=== PATIENT | female | born 1945 | race Caucasian/White ===

== ENCOUNTER 2017-01-20 09:54 | Emergency (ER) | payer SELFPAY ==
[~2017-01-20] VITALS: Ht 142.2 cm; Wt 87.5 kg
[2017-01-20 10:04] VITALS: Ht 142.2 cm; Wt 87.5 kg
[2017-01-20] MEDS ORDERED: ACETAMINOPHEN 500 MG TAB PO STA (11:34)
[2017-01-20] MEDS ORDERED: traMADol 50 MG TAB PO ONE (12:00)
[2017-01-20 12:20] LABS: ADD UMIC YES; URINE BILIRUBIN (Dip) NEGATIVE (NEGATIVE); URINE BLOOD (Dip) 1+ (NEGATIVE); URINE COLOR LT. YELLOW (YELLOW); URINE GLUCOSE (Dip) NEGATIVE (NEGATIVE); URINE KETONES (Dip) NEGATIVE (NEGATIVE); URINE LEUKOCYTE ESTERASE (Dip) 1+ (NEGATIVE); URINE NITRITE (Dip) NEGATIVE (NEGATIVE); URINE TOTAL PROTEIN (Dip) NEGATIVE (NEGATIVE); URINE UROBILINOGEN (Dip) 0.2 E.U./dL (0.1-1.0)
[2017-01-20 12:47] LABS: SQUAMOUS EPITHELIAL CELL,UR FEW
[2017-01-20] MEDS ORDERED: NITR-58 PO (12:55)
[2017-01-20] MEDS ORDERED: TRAM-40 PO (12:55)
[2017-01-20] MEDS ORDERED: LOSA100T7 PO (12:55)
[2017-01-20] MEDS ORDERED: HYD25 PO (12:55)
[2017-01-20] MEDS ORDERED: ACET500C5 PO (12:55)
--- NOTE | 2017-01-20 13:00 | ERD ---
ER Documentation Chief Complaint Date/Time DATE: 01/20/17 TIME: 12:58 Chief Complaint BACK PAIN FOR SEVERAL DAYS GOT WORSE HPI This 71-year-old female complains of history of chronic upper back pain. Patient [place] 2 [place] ago. She is requesting a refill on her blood pressure medicines which are hydrochlorothiazide and losartan. She is requesting medication for her chronic back pain. Patient gives a history of kidney stones. She brings with her a CAT scan which upon my review shows a staghorn calculus on the left. There is no history of fevers, vomiting, abdominal pain. There is no history of urinary complaints per ROS All systems reviewed and are negative except as per history of present illness. Medications Home Meds Active Scripts Nitrofurantoin Monohyd Macrocr* (Macrobid*) 100 Mg Capsr, 100 MG PO BID for 14 Days, CAP Prov:BRYSON GRANGER MD 01/20/17 Hydrochlorothiazide* (Hydrochlorothiazide*) 25 Mg Tab, 25 MG PO DAILY, #30 TAB Prov:BRYSON GRANGER MD 01/20/17 Losartan Potassium* (Losartan Potassium*) 100 Mg Tablet, 100 MG PO DAILY, #30 TAB Prov:BRYSON GRANGER MD 01/20/17 Tramadol Hcl* (Ultram*) 50 Mg Tablet, 50 MG PO Q6H Y for PAIN, #20 TAB Prov:BRYSON GRANGER MD 01/20/17 Acetaminophen* (Tylophen*) 500 Mg Capsule, 1 CAP PO Q6H Y for PAIN AND OR ELEVATED TEMP, #30 CAP Prov:BRYSON GRANGER MD 01/20/17 PMhx/Soc Medical and Surgical Hx: pt denies Medical Hx, pt denies Surgical Hx Hx Alcohol Use: No Hx Substance Use: No Smoking Status: Never smoker Physical Exam Vitals Vital Signs Date Time Temp Pulse Resp B/P Pulse Ox O2 Delivery O2 Flow Rate FiO2 01/20/17 10:04 98.8 78 17 184/87 98 Physical Exam Const: [] Alert, fot-egg-eewlwiuhr per Head: Atraumatic Eyes: Normal Conjunctiva ENT: Normal External Ears, Nose and Mouth. Neck: Full range of motion..~ No meningismus. Resp: Clear to auscultation bilaterally Cardio: Regular rate and rhythm, no murmurs Abd: Soft, non tender, non distended. Normal bowel sounds Skin: No petechiae or rashes Back: No midline. Mild bilateral flank tenderness. Ext: No cyanosis, or edema Neur: Awake and alert Psych: Normal Mood and Affect Results 24 hrs Laboratory Tests Test 01/20/17 11:45 Urine Color LT. YELLOW Urine Clarity CLEAR Urine pH 7.5 Urine Specific [place] 1.010 Urine Ketones NEGATIVE Urine Nitrite NEGATIVE Urine Bilirubin NEGATIVE Urine Urobilinogen 0.2 E.U./dL Urine Leukocyte Esterase 1+ Urine Microscopic RBC 2-5/HPF Urine Microscopic WBC 0-2/HPF Urine Squamous Epithelial Cells FEW Urine Hemoglobin 1+ Urine Glucose NEGATIVE% Urine Total Protein NEGATIVE Current Medications Medications (Trade) Dose Ordered Sig/Young Route PRN Reason Start Time Stop Time Status Last Admin Dose Admin Tramadol HCl (Ultram) 50 mg ONCE ONCE PO 01/20/17 12:00 01/20/17 12:01 DC 01/20/17 11:44 Acetaminophen (Tylenol Tab) 500 mg ONCE STAT PO 01/20/17 11:34 01/20/17 11:36 DC 01/20/17 11:44 Procedures/MDM Urine shows 1+ leukocyte esterase but few bacteria and WBCs. Urine was sent for culture. Patient was given tramadol 50 mg of mouth and Tylenol 500 mg by mouth. Patient will be given tramadol and Tylenol for pain. She will be given refills of her losartan hydrochlorothiazide. Patient and purchasing associate state that she has a urology appointment next month for further evaluation. Signs or symptoms do not suggest pyelonephritis or significant UTI but we will give Macrobid until culture results return. There is no signs of acute abdomen, or sepsis. Patient is advised to return for new or worsening symptoms as directed after instructions with primary doctor and urology as scheduled. The patient was stable with no new complaints during the ER course. Clinically, there is no current evidence to suggest meningitis, sepsis, acute abdomen, pneumonia, acute coronary syndrome, pulmonary embolism, or any other emergent condition appearing to require further evaluation or hospitalization. The patient should certainly return for any new or worsening symptoms per the aftercare instructions. They should otherwise follow-up with her primary care doctor for reevaluation this week. Departure Diagnosis: Primary Impression: Hypertension Hypertension type: essential hypertension Qualified Code: I10 - Essential hypertension Additional Impression: Back pain Back pain location: back pain in unspecified location Chronicity: chronic Back pain laterality: bilateral Qualified Code: M54.9 - Chronic bilateral back pain, unspecified back location Condition: Stable Patient Instructions: Back Pain (Acute Or Chronic), Kidney Stone, Undescended ( No Symptoms) Additional Instructions: vamos a tratar para posiblemente poquito infeccion en orina. Cheque otro vez con carvalho doctor primario en el proximo ordonez or regresa para mas o nueva simptomas. BRYSON GRANGER MD Jan 20, 2017 13:00
[2017-01-20 13:05] VITALS: BP 170/67; PULSE 76; RESP 17
== END 2017-01-20 13:05 | disposition home or self-care (01) ==
LOC: FTE 09:54
DX: I10 Essential (primary) hypertension (principal); R10.9 Unspecified abdominal pain
CPT/HCPCS: 81001; 99284